=== PATIENT | male | born 1960 | race Caucasian/White ===

== ENCOUNTER 2018-06-02 12:01 | Outpatient (CLI) | payer OTHER ==
--- NOTE | 2018-06-02 12:28 | RAD ---
THREE VIEWS LEFT HAND: Comparison: 05-19-18 History: Left hand pain, swelling. FINDINGS: Three views of the left hand shows no evidence of acute fracture or dislocation. No soft tissue swell ing is seen. No degenerative changes are present. IMPRESSION: Unremarkable exam. POS: [facility]
== END 2018-06-02 12:02 | disposition home or self-care (01) ==
LOC: BURRAD 12:01
PROVIDERS: ATTEND Family Medicine
DX: M79.642 Pain in left hand (principal)

== ENCOUNTER 2018-12-14 10:53 | Outpatient (CLI) | payer OTHER ==
--- NOTE | 2018-12-14 13:36 | CT ---
CT BRAIN: 12/14/2018 HISTORY: COMPARISON: [facility] study dated 02/14/2018. FINDINGS: The ventricles remain normal in size and show no shift. 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 They are a little more easily apparent today than bef ore. There are a few other tiny lacunar infarcts seen around the basal ganglia regions, near the fro ntal horns. There are no signs of acute CVA, though MRI would be much more sensitive to such. There is no intracranial bleeding, mass, or edema. Overall, the appearance of the brain is similar to the 2018 study, except for a little further encephalomalacia around the old infarcts. IMPRESSION: Old ischemic changes, but no definite acute findings. POS: [facility]
--- NOTE | 2018-12-14 17:53 | ULT ---
CAROTID ULTRASOUND: 12/14/18 Ultrasonography of the carotid and vertebral arteries was performed using color duplex Doppler ultras ound. Minimal plaque is seen around each carotid bifurcation. No large obstructing plaques were evident on the 2D images. Analysis of the right carotid system showed peak values of 57/18 cm/s in the right ICA and 125/13 in the right ECA. The systolic velocity ratio was 0.6. All of these values are within limits of normal. Analysis of the left carotid system was similar showing peak values in the left ICA of 57/18 cm/s and 66/20 in the left ECA. The systolic velocity ratio was 0.6 which is normal. Vertebral flow is antegrade bilaterally. IMPRESSION: No evidence of hemodynamically significant stenosis. POS: HOME
== END 2018-12-14 10:54 | disposition home or self-care (01) ==
LOC: BURCT 10:53
PROVIDERS: ATTEND Nurse Practitioner Family
DX: R49.9 Unspecified voice and resonance disorder (principal); Z86.73 Personal history of transient ischemic attack (TIA), and cerebral infarction without residual deficits
CPT/HCPCS: 70450; 93880

== ENCOUNTER 2019-11-20 10:47 | Emergency (ER) | payer OTHER ==
[2019-11-20] MEDS ORDERED: Cefepime 1 GM VIAL ONE (11:52)
[2019-11-20 11:59] LABS: #Basophils 0.1 thou/uL (0.0-0.2); #Eosinphils 0.5 thou/uL (0.0-0.7); #Lymphocytes 1.6 thou/uL (1.20-3.40); #Monocytes 0.9 thou/uL (0.11-0.59); #Neutrophils 12.9 thou/uL (1.40-6.50); %Basophils 0.5 % (0.0-1.0); %Eosinophils 3.3 % (0.0-10.0); %Lymphocytes 9.9 % (21.0-51.0); %Monocytes 5.7 % (0.0-10.0); %Neutrophils 80.7 % (42.0-75.0); Hemoglobin 12.1 g/dL (14.0-18.0); Mean Corpuscular HGB CONC 31.7 g/dL (32.0-36.0); Mean Corpuscular Hemoglobin 29.6 pg (27.0-31.0); Mean Corpuscular Volume 93.2 fL (78.0-98.0); Mean Platelet Volume 7.8 fL (7.4-10.4); Platelet Count 312 thou/uL (130-400); RBC Distribution Width 12.2 % (11.5-14.5); Red Blood Cell (RBC) Count 4.08 mill/uL (4.70-6.10)
[2019-11-20 12:12] LABS: ALT (SGPT) 38 U/L (8-55); AST (SGOT) 33 U/L (5-34); Alkaline Phosphatase 130 U/L (40-110); Anion Gap 15 mmol/L (10-20); BUN (Urea Nitrogen) 22 mg/dL (8.4-25.7); Bilirubin, Total 0.4 mg/dL (0.2-1.2); Calc. Creatinine Clearance 0 mL/min (70-130); Calcium 9.4 mg/dL (7.8-10.44); Carbon Dioxide 24 mmol/L (22-29); Chloride 107 mmol/L (98-107); Estimated GFR-MDRD Greater than 90; Globulin 3.4 g/dL (2.4-3.5); Glucose 126 mg/dL (70-105); Potassium 4.3 mmol/L (3.5-5.1); Protein, Total 7.4 g/dL (6.0-8.3); Sodium 142 mmol/L (136-145)
[2019-11-20 12:52] LABS: Bilirubin Negative (Negative); Blood, Urine Negative (Negative); Clarity Slightly Cloudy (Clear); Glucose, Urine (Dipstick) Negative (Negative); Leukocyte Negative (Negative); Nitrite Negative (Negative); Protein, Urine (Dipstick) Negative (Neg-Trace); Urobilinogen 0.2 mg/dL (Less than 2)
--- NOTE | 2019-11-20 20:59 | RAD ---
PORTABLE CHEST: 11/20/19 An AP portable film at 04/19 is compared with the prior study of 02/15/18. There are some linear infiltrates in the right lung base. I cannot tell if this is atelectasis, pneum onia or both. The left lung is relatively clear. There was one area that might be a tiny patchy regio n, but it is mostly obscured by an overlapping rib. There are no congestive changes. The heart is nor mal in size. IMPRESSION: Right basilar streaking. Atelectasis versus infection. Code T POS: HOME
[2019-11-21 12:47] LABS: SARS-CoV-2 MS2 Positive; SARS-CoV-2 N Gene Negative; SARS-CoV-2 S Gene Negative; SARS-CoV-2 orf1ab Negative
== END 2019-11-20 13:00 | disposition short-term general hospital (02) ==
LOC: BURERS 10:47
DX: A41.9 Sepsis, unspecified organism (principal); J18.9 Pneumonia, unspecified organism; Z20.828 Contact with and (suspected) exposure to other viral communicable diseases; E11.9 Type 2 diabetes mellitus without complications; I10 Essential (primary) hypertension; E78.5 Hyperlipidemia, unspecified; F32.9 Major depressive disorder, single episode, unspecified; Z86.73 Personal history of transient ischemic attack (TIA), and cerebral infarction without residual deficits; Z87.891 Personal history of nicotine dependence; Z79.899 Other long term (current) drug therapy; Z79.82 Long term (current) use of aspirin; Z79.84 Long term (current) use of oral hypoglycemic drugs
CPT/HCPCS: 51701; 71045; 80053; 81003; 83605; 83880; 84484; 85025; 85379; 87040; 87635; 87804; 93005; 94760; 96365; 96375; J0692; J1956; J3370; U0003

== ENCOUNTER 2020-01-02 08:42 | Outpatient (CLI) | payer OTHER ==
--- NOTE | 2020-01-02 17:32 | RAD ---
RIGHT HUMERUS TWO VIEWS: 01/02/20 No fracture or obvious bony deformity was appreciated. Perhaps the patient's acromion is a little mor e prominent than some, but is not abnormal. IMPRESSION: No significant findings. POS: HOME
== END 2020-01-02 08:43 | disposition home or self-care (01) ==
LOC: BURRAD 08:42
PROVIDERS: ATTEND Registered Nurse Community Health
DX: M79.602 Pain in left arm (principal)

== ENCOUNTER 2020-01-06 07:04 | Outpatient (CLI) | payer OTHER ==
[2020-01-06 07:18] LABS: Hemoglobin 12.1 g/dL (14.0-18.0); Mean Corpuscular HGB CONC 31.6 g/dL (32.0-36.0); Mean Corpuscular Hemoglobin 29.3 pg (27.0-31.0); Mean Corpuscular Volume 92.7 fL (78.0-98.0); Mean Platelet Volume 7.7 fL (7.4-10.4); Platelet Count 296 thou/uL (130-400); RBC Distribution Width 12.5 % (11.5-14.5); Red Blood Cell (RBC) Count 4.13 mill/uL (4.70-6.10)
[2020-01-06 07:35] LABS: ALT (SGPT) 35 U/L (8-55); AST (SGOT) 22 U/L (5-34); Albumin 3.8 g/dL (3.5-5.0); Alkaline Phosphatase 137 U/L (40-110); Anion Gap 16 mmol/L (10-20); BUN (Urea Nitrogen) 21 mg/dL (8.4-25.7); Bilirubin, Total 0.3 mg/dL (0.2-1.2); Calc. Creatinine Clearance 0 mL/min (70-130); Calcium 9.1 mg/dL (7.8-10.44); Carbon Dioxide 23 mmol/L (22-29); Chloride 107 mmol/L (98-107); Estimated GFR-MDRD Greater than 90; Globulin 3.1 g/dL (2.4-3.5); Glucose 155 mg/dL (70-105); Potassium 4.1 mmol/L (3.5-5.1); Protein, Total 6.9 g/dL (6.0-8.3); Sodium 142 mmol/L (136-145)
== END 2020-01-06 07:05 | disposition home or self-care (01) ==
LOC: BURMANOR 07:04
PROVIDERS: ATTEND Registered Nurse Community Health
DX: I63.9 Cerebral infarction, unspecified (principal)
CPT/HCPCS: 80053; 84443; 85027

== ENCOUNTER 2020-01-07 15:45 | Outpatient (CLI) | payer OTHER ==
--- NOTE | 2020-01-07 20:24 | RAD ---
CHEST TWO VIEWS: Date: 01-07-2020 Comparison: 11-20-2019 portable film FINDINGS: There is some definite linear streaking in the right base, much more so than there was previously. Pn eumonia or atelectasis are most likely. The left lung is clear. The heart is borderline in size but n o worse than before. There is no vascular congestion, edema, or pleural effusion. IMPRESSION: Linear streaking right base. Pneumonia versus atelectasis. POS: HOME
== END 2020-01-07 15:46 | disposition home or self-care (01) ==
LOC: BURRAD 15:45
PROVIDERS: ATTEND Registered Nurse Community Health
DX: D72.829 Elevated white blood cell count, unspecified (principal); R09.89 Other specified symptoms and signs involving the circulatory and respiratory systems
CPT/HCPCS: 71046

== ENCOUNTER 2020-02-08 16:14 | Outpatient (CLI) | payer OTHER ==
--- NOTE | 2020-02-08 17:37 | RAD ---
PORTABLE CHEST: 02/08/20 An AP portable film at 1635 is compared with an 01/07/20 study. There is a little bit of a patchy infiltrate in the right lower lobe, though this may be residual as there was a little more infiltrate there before. The lungs are otherwise clear. Specifically, the lef t lung is clear. There are no effusions. The heart size is normal. A wire object over the right upper chest may either be external to the patient or be somehow related to a line. IMPRESSION: Minimal patchy infiltrate in the right lower lobe, possibly residual from prior infection. POS: HOME
== END 2020-02-08 16:15 | disposition home or self-care (01) ==
LOC: BURRAD 16:14
PROVIDERS: ATTEND Registered Nurse Community Health
DX: J18.9 Pneumonia, unspecified organism (principal); F32.89 Other specified depressive episodes; R91.8 Other nonspecific abnormal finding of lung field
CPT/HCPCS: 71045

== ENCOUNTER 2020-10-15 23:05 | Emergency (ER) | payer MEDICARE, MEDICAID ==
[2020-10-16 00:11] LABS: #Basophils 0.1 thou/uL (0.0-0.2); #Eosinphils 0.4 thou/uL (0.0-0.7); #Lymphocytes 2.5 thou/uL (1.20-3.40); #Neutrophils 5.8 thou/uL (1.40-6.50); %Basophils 0.7 % (0.0-1.0); %Lymphocytes 25.4 % (21.0-51.0); %Monocytes 10.7 % (0.0-10.0); %Neutrophils 59.2 % (42.0-75.0); Hemoglobin 13.2 g/dL (14.0-18.0); Mean Corpuscular HGB CONC 33.9 g/dL (32.0-36.0); Mean Corpuscular Volume 88.7 fL (78.0-98.0); Mean Platelet Volume 7.3 fL (7.4-10.4); Platelet Count 294 thou/uL (130-400); RBC Distribution Width 12.2 % (11.5-14.5); White Blood Cell (WBC) Count 9.7 thou/uL (4.8-10.8)
[2020-10-16 00:27] LABS: ALT (SGPT) 25 U/L (8-55); AST (SGOT) 16 U/L (5-34); Albumin 3.9 g/dL (3.5-5.0); Alkaline Phosphatase 125 U/L (40-110); Anion Gap 13 mmol/L (10-20); BUN (Urea Nitrogen) 19 mg/dL (8.4-25.7); Bilirubin, Total 0.2 mg/dL (0.2-1.2); Calc. Creatinine Clearance 0 mL/min (70-130); Calcium 9.3 mg/dL (7.8-10.44); Carbon Dioxide 26 mmol/L (22-29); Chloride 106 mmol/L (98-107); Globulin 3.3 g/dL (2.4-3.5); Glucose 185 mg/dL (70-105); Potassium 3.7 mmol/L (3.5-5.1); Protein, Total 7.2 g/dL (6.0-8.3); Sodium 141 mmol/L (136-145)
== END 2020-10-16 00:52 ==
LOC: BURERS 23:05
DX: R49.0 Dysphonia (principal); E11.9 Type 2 diabetes mellitus without complications; E78.5 Hyperlipidemia, unspecified; I10 Essential (primary) hypertension; Z86.73 Personal history of transient ischemic attack (TIA), and cerebral infarction without residual deficits; Z87.891 Personal history of nicotine dependence; Z79.899 Other long term (current) drug therapy; Z79.82 Long term (current) use of aspirin; Z79.84 Long term (current) use of oral hypoglycemic drugs; Z79.01 Long term (current) use of anticoagulants
CPT/HCPCS: 36415; 70450; 80053; 85025; 93005; 94760

== ENCOUNTER 2021-02-18 09:28 | Outpatient (CLI) | payer MEDICARE, MEDICAID ==
[2021-02-18 09:48] LABS: ALT (SGPT) 22 U/L (8-55); AST (SGOT) 17 U/L (5-34); Albumin 3.8 g/dL (3.5-5.0); Alkaline Phosphatase 120 U/L (40-110); Anion Gap 14 mmol/L (10-20); BUN (Urea Nitrogen) 16 mg/dL (8.4-25.7); Bilirubin, Total 0.4 mg/dL (0.2-1.2); Calc. Creatinine Clearance 0 mL/min (70-130); Calcium 9.4 mg/dL (7.8-10.44); Carbon Dioxide 25 mmol/L (22-29); Chloride 107 mmol/L (98-107); Globulin 3.6 g/dL (2.4-3.5); Glucose 221 mg/dL (70-105); Potassium 3.6 mmol/L (3.5-5.1); Protein, Total 7.4 g/dL (6.0-8.3); Sodium 142 mmol/L (136-145)
== END 2021-02-18 09:29 | disposition home or self-care (01) ==
LOC: BURMANOR 09:28
PROVIDERS: ATTEND Family Medicine
DX: E87.5 Hyperkalemia (principal)
CPT/HCPCS: 80053

== ENCOUNTER 2021-07-13 14:15 | Outpatient (CLI) | payer MEDICARE, MEDICAID | END 2021-07-13 14:16 | disposition home or self-care (01) | LOC: BURRAD 14:15 | PROVIDERS: ATTEND Registered Nurse Community Health | DX: S59.802A Other specified injuries of left elbow, initial encounter (principal) ==

== ENCOUNTER 2021-09-07 23:27 | Emergency (ER) | payer MEDICARE, MEDICAID ==
[2021-09-07 23:55] LABS: #Basophils 0.1 thou/uL (0.0-0.2); #Eosinphils 0.7 thou/uL (0.0-0.7); #Lymphocytes 2.3 thou/uL (1.20-3.40); #Monocytes 0.7 thou/uL (0.11-0.59); #Neutrophils 7.6 thou/uL (1.40-6.50); %Basophils 0.7 % (0.0-1.0); %Eosinophils 6.4 % (0.0-10.0); %Monocytes 6.2 % (0.0-10.0); %Neutrophils 66.7 % (42.0-75.0); Hemoglobin 13.9 g/dL (14.0-18.0); Mean Corpuscular HGB CONC 33.1 g/dL (32.0-36.0); Mean Corpuscular Hemoglobin 29.8 pg (27.0-31.0); Mean Corpuscular Volume 90.1 fL (78.0-98.0); Mean Platelet Volume 7.6 fL (7.4-10.4); Platelet Count 298 thou/uL (130-400); RBC Distribution Width 12.6 % (11.5-14.5); Red Blood Cell (RBC) Count 4.67 mill/uL (4.70-6.10); White Blood Cell (WBC) Count 11.4 thou/uL (4.8-10.8)
[2021-09-08 00:13] LABS: ALT (SGPT) 23 U/L (8-55); AST (SGOT) 20 U/L (5-34); Alkaline Phosphatase 105 U/L (40-110); Anion Gap 18 mmol/L (10-20); BUN (Urea Nitrogen) 24 mg/dL (8.4-25.7); Bilirubin, Total 0.4 mg/dL (0.2-1.2); Calc. Creatinine Clearance 0 mL/min (70-130); Calcium 9.7 mg/dL (7.8-10.44); Carbon Dioxide 23 mmol/L (22-29); Chloride 105 mmol/L (98-107); Glucose 160 mg/dL (70-105); Sodium 142 mmol/L (136-145)
[2021-09-08] MEDS ORDERED: cefTRIAXone\\ROCEPHIN 2 GM VIAL ONE (00:34)
[2021-09-08] MEDS ORDERED: Pantoprazole 40 MG VIAL ONE (00:34)
== END 2021-09-08 01:45 | disposition home or self-care (01) ==
LOC: BURERS 23:27
DX: J18.9 Pneumonia, unspecified organism (principal); I10 Essential (primary) hypertension; E11.9 Type 2 diabetes mellitus without complications; Z86.73 Personal history of transient ischemic attack (TIA), and cerebral infarction without residual deficits; Z87.891 Personal history of nicotine dependence; Z79.82 Long term (current) use of aspirin; Z79.899 Other long term (current) drug therapy; Z79.84 Long term (current) use of oral hypoglycemic drugs; Z79.01 Long term (current) use of anticoagulants
CPT/HCPCS: 71045; 80053; 83880; 84484; 85025; 93005; 96374; 96375; C9113; J0696

== ENCOUNTER 2021-10-21 13:46 | Outpatient (CLI) | payer MEDICARE, OTHER ==
[2021-10-21 21:36] LABS: SARS-CoV-2 PCR by NAA Not Detected (NotDetected)
== END 2021-10-21 13:47 | disposition home or self-care (01) ==
LOC: BURMANOR 13:46
PROVIDERS: ATTEND Nurse Practitioner Family
DX: Z20.822 Contact with and (suspected) exposure to COVID-19 (principal)
CPT/HCPCS: U0003; U0005

== ENCOUNTER 2021-10-22 16:12 | Outpatient (CLI) | payer MEDICARE, OTHER | END 2021-10-22 16:13 | disposition home or self-care (01) | LOC: BURMANOR 16:12 | PROVIDERS: ATTEND Nurse Practitioner Family | DX: J09.X2 Influenza due to identified novel influenza A virus with other respiratory manifestations (principal) | CPT/HCPCS: 87804 ==

== ENCOUNTER 2022-07-29 19:37 | Outpatient (CLI) | payer MEDICARE, OTHER | END 2022-07-29 19:38 | disposition home or self-care (01) | LOC: BURRAD 19:37 | PROVIDERS: ATTEND Nurse Practitioner Family | DX: R06.2 Wheezing (principal); R91.8 Other nonspecific abnormal finding of lung field | CPT/HCPCS: 71046 ==